=== PATIENT | male | born 2000 | race Caucasian/White ===

== ENCOUNTER 2022-12-02 08:00 | Outpatient (CLI) | payer OTHER ==
--- NOTE | 2022-12-02 19:48 | XRAY Report ---
PROCEDURE: Foot 3 View LT INDICATIONS: PUNCTURE WOUND WITH FOREIGN BODY LEFT FOOT TECHNIQUE: 3 views of the foot were acquired. COMPARISON: None. FINDINGS: Bones: No fractures or dislocations. No suspicious bony lesions. Soft tissues: No suspicious soft tissue calcifications or masses. No radiopaque foreign body. IMPRESSION: No acute bony abnormality. No radiopaque foreign body. Reviewed by: Mel Kaufman MD on 12/02/2022 7:47 PM PDT Approved by: Mel Kaufman MD on 12/02/2022 7:47 PM PDT Station ID: [id number]
== END 2022-12-02 23:59 | disposition home or self-care (01) ==
LOC: DI.S 08:00
PROVIDERS: ATTEND Physician Assistant Medical
DX: S91.342A Puncture wound with foreign body, left foot, initial encounter (principal)

== ENCOUNTER 2023-08-28 20:53 | Emergency (ER) | payer OTHER ==
[2023-08-28 21:28] VITALS: BP 137/72; O2SAT 99
--- NOTE | 2023-08-28 21:38 | ED Physician Documentation ---
History of Present Illness - Stated complaint Stated Complaint: INGROWN TOENAIL - Chief complaint Chief Complaint: Ext Problem - History obtained from History obtained from: Patient - Additonal information Additional information: 23yM p/w chronic L ingrown toenail on first toe . no other complaints PD PAST MEDICAL HISTORY - Past Medical History Past Medical History: No Other Past Medical History: ingrown toenail - Past Surgical History Past Surgical History: No - Present Medications Home Medications: Ambulatory Orders Medication Instructions Recorded Confirmed No Known Home Medications 08/28/23 08/28/23 - Allergies Allergies/Adverse Reactions: Allergies Allergy/AdvReac Type Severity Reaction Status Date / Time No Known Drug Allergies Allergy Verified 08/28/23 21:26 - Social History Does the pt smoke?: No Smoking Status: Never smoker Does the pt drink ETOH?: No Does the pt have substance abuse?: No - Immunizations Immunizations are current?: Yes - POLST Patient has POLST: No PD ED PE NORMAL - Vitals Vital signs reviewed: Yes - General General: Alert and oriented X 3, No acute distress, Well developed/nourished - HEENT HEENT: Atraumatic, PERRL, EOMI - Derm Derm: Normal color, Warm and dry - Extremities Extremities: Other (L first toe with ingrown nail to lateral aspect. no fluctuance or erythema. good cap refill. csm intact LLE) Results - Vitals Vitals: Vital Signs - 24 hr 08/28/23 21:22 Temperature 36.2 C L Heart Rate 78 Respiratory 16 Rate Blood Pressure 137/72 H O2 Saturation 99 Oxygen O2 Source Room air PD Medical Decision Making - ED course ED course: 23yM p/w L first toe ingrown nail. advised symptomatic care and outpatient f/u with podiatry. return precautions given. Departure - Departure Disposition: 01 Home, Self Care Clinical Impression: Ingrown toenail Condition: Stable Instructions: Ingrown Toenails Follow-Up: Milton Dubose DPM [Physician No Access] - Comments: You were seen in the emergency department for ingrown toenail. [facility] Assistant Department Head Dr. Dubose has openings currently and is usually able to get patients in quickly. Please follow-up with your podiatry and return to the emergency department if you have any new or worsening symptoms or other concerns.
== END 2023-08-28 21:46 | disposition home or self-care (01) ==
LOC: ED 20:53
DX: L60.0 Ingrowing nail (principal)
CPT/HCPCS: 99282; 99283